=== PATIENT | male | born 1965 | race Caucasian/White ===

== ENCOUNTER 2018-01-19 12:20 | Outpatient (CLI) | payer OTHER, SELFPAY ==
--- NOTE | 2018-01-19 13:24 | RAD ---
RIGHT KNEE TWO VIEWS: HISTORY: M[age] (disability evaluation). COMPARISON: None. FINDINGS: No fracture. No malalignment. Soft tissues unremarkable. IMPRESSION: No acute abnormality. POS: [facility]
--- NOTE | 2018-01-19 13:25 | RAD ---
LUMBAR SPINE THREE VIEWS: HISTORY: A 52-year-old male with a history of low back pain. FINDINGS: There is severe multilevel lumbar spondylosis with narrowing and sclerosis, particularly at L3-L4. N o significant malalignment. No acute fracture. IMPRESSION: 1. Severe lumbar spondylosis. 2. Very severe right hip joint arthrosis. POS: C
== END 2018-01-19 12:21 | disposition home or self-care (01) ==
LOC: NAV RAD 12:20
PROVIDERS: ATTEND Family Medicine
DX: M54.5 Low back pain (principal); M47.896 Other spondylosis, lumbar region; M16.11 Unilateral primary osteoarthritis, right hip
CPT/HCPCS: 72100

== ENCOUNTER 2018-09-22 21:17 | Emergency (ER) | payer OTHER, SELFPAY ==
[2018-09-22] MEDS ORDERED: Lidocaine 1% w/Epinephrine 1:100K 30 ML VIAL ONE (21:32)
== END 2018-09-22 22:10 | disposition home or self-care (01) ==
LOC: NAV ERS 21:17
DX: S01.81XA Laceration without foreign body of other part of head, initial encounter (principal); F17.210 Nicotine dependence, cigarettes, uncomplicated; W22.8XXA Striking against or struck by other objects, initial encounter
CPT/HCPCS: 12013; J2001